=== PATIENT | male | born 1970 | race Caucasian/White ===

== ENCOUNTER → 2021-02-04 15:31 | Outpatient (CLI) | payer OTHER, SELFPAY ==
--- NOTE | ~2021-02-04 | XR_ITS ---
XR foot LT min 3V 02/04/2021 16:15 Indication: Left foot pain Procedure: 4 views left foot Comparison: No prior studies for comparison. Findings: There is moderate polyarticular degenerative change of the midfoot. There are prominent deg enerative calcaneal enthesophytes. There is mild osteoarthritis of the first MTP joint. No significan t soft tissue abnormality. Lisfranc joint intact. No foreign bodies. 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 Reviewed, dictated and finalized at location A. 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
== END ==
PROVIDERS: PCP Family Medicine; Visit Provider Nurse Practitioner Family
DX: M19.072 Primary osteoarthritis, left ankle and foot (principal); M79.89 Other specified soft tissue disorders
CPT/HCPCS: 73630

== ENCOUNTER 2023-05-12 10:58 | Outpatient (CLI) | payer OTHER, SELFPAY ==
--- NOTE | ~2023-05-12 | XR_ITS ---
Thoracic spine: Clinical Indication: Back pain AP and lateral views were performed. No fracture is seen. There is normal alignment of the vertebrae. The intervertebral disc spaces appe ar normal. There is DISH of the thoracic spine. Paravertebral soft tissues appear normal. Impression: DISH of the thoracic spine. Reviewed, dictated and finalized at location . Impression: DISH of the thoracic spine.
--- NOTE | ~2023-05-12 | XR_ITS ---
Lumbosacral Spine: AP and lateral views Clinical History: Pain Findings: The normal lordotic curve is maintained. The vertebral bodies and posterior elements are i ntact. The intervertebral disc spaces are preserved. There is moderate to advanced facet arthropathy at the mid to lower lumbar spine. The sacroiliac joints are normally outlined. Impression: Facet joint degenerative changes, as above. Reviewed, dictated and finalized at location M. Impression: Facet joint degenerative changes, as above.
== END 2023-05-12 10:59 ==
LOC: MICIMG 11:03
PROVIDERS: PCP Family Medicine; Visit Provider Nurse Practitioner Family
DX: M48.14 Ankylosing hyperostosis [Forestier], thoracic region (principal); M47.896 Other spondylosis, lumbar region
CPT/HCPCS: 72070; 72100